=== PATIENT | male | born 2000 | race African-American/Black ===

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

== ENCOUNTER 2022-01-12 08:52 | Emergency (ER) | payer MEDICAID, OTHER ==
[~2022-01-12] VITALS: Ht 198.1 cm; Wt 109.0 kg
[2022-01-12 09:13] VITALS: BP 147/77
--- NOTE | 2022-01-12 09:14 | PHYS DOC ---
Past History Past Medical History: No Pertinent History Past Surgical History: No Surgical History Alcohol Use: None General Adult HPI: HPI: Patient is a 21-year-old male who presents to the emergency department for complaints of right anterior knee pain that started today. Patient reports that he was in football practice when a teammate clipped his right knee. He rates his pain 7 out of 10. Pain does not radiate. No treatment prior to arrival. Patient is able to bear weight and ambulate. He denies any decreased range of motion or decreased sensation in his leg. Review of Systems: Review of Systems: Musculoskeletal: See HPI Integument: See HPI Neurologic: See HPI Allergies: Allergies: Allergies Coded Allergies Type Severity Reaction Last Updated Verified No Known Drug Allergies 06/23/21 No Physical Exam: PE: Constitutional: Well developed, well nourished, no acute distress, non-toxic appearance. [] HENT: Normocephalic, atraumatic, bilateral external ears normal, oropharynx moist, no oral exudates, nose normal. [] Eyes: PERRL, EOMI, conjunctiva normal, no discharge. [] Neck: Normal range of motion, no stridor Cardiovascular: Normal peripheral perfusion Lungs & Thorax: Normal work of breathing, no tachypnea Abdomen: Soft and flat Skin: Warm, dry, no erythema, no rash. [] Back: No tenderness, normal range of motion Extremities: No tenderness, no cyanosis, no clubbing, ROM intact, no edema. [] Right knee: Pain with palpation of the anterior aspect of the right knee, no crepitus, no joint laxity, no obvious deformity, range of motion intact, neuro intact, no open wounds Neurologic: Alert and oriented X 3, normal motor function, normal sensory function, no focal deficits noted. [] Psychologic: Affect normal, judgement normal, mood normal. [] EKG: EKG: [] Radiology/Procedures: Radiology/Procedures: []PROCEDURE: KNEE RIGHT 3V EXAM: XR KNEE 3 VIEWS_RT 01/12/2022 9:27 AM CLINICAL INDICATION: Right knee injury during football practice. Lateral knee pain. COMPARISON: None TECHNIQUE: AP, oblique, and lateral views of the right knee FINDINGS: No acute fracture. Alignment is normal. Joint spaces are maintained. There is no joint effusion. Mild prepatellar soft tissue swelling.. IMPRESSION: 1. No acute osseous abnormality. 2. Mild prepatellar soft tissue swelling. Electronically signed by: Anita Mccall MD (01/12/2022 9:31 AM) [id number] DICTATED AND SIGNED BY: ANITA MCCALL MD DATE: 01/12/22 0931 CC: EMERGENCY,DEPARTMENT; ISAEL ANGEL APRN; PCP,NO ~ Heart Score: C/O Chest Pain: N/A Risk Factors: Risk Factors: DM, Current or recent (<one month) smoker, HTN, HLP, family history of CAD, obesity. Risk Scores: Score 0 - 3: 2.5% MACE over next 6 weeks - Discharge Home Score 4 - 6: 20.3% MACE over next 6 weeks - Admit for Clinical Observation Score 7 - 10: 72.7% MACE over next 6 weeks - Early Invasive Strategies Course & Med Decision Making: Course & Med Decision Making Pertinent Labs and Imaging studies reviewed. (See chart for details) [] Patient presents to the emergency department for right knee pain after getting in his right knee during football practice. X-ray was performed in the emergency department. X-ray shows no acute findings. Patient is knee placed in Morales wrap. Patient educated on RICE protocol. Patient advised to take Tylenol ibuprofen for pain. He is neurovascularly intact and able to bear weight and ambulate with steady gait. I discussed with patient all findings and diagnostic testing as well as the need to follow-up with PCP for further evaluation and treatment or return to the ER if any new or worsening symptoms. Strict return precautions were also discussed at length. Patient voiced understanding and agreement with the plan. Patient is hemodynamically stable at the time of disposition. Dragon Disclaimer: Dragrosa maria Disclaimer: This electronic medical record was generated, in whole or in part, using a voice recognition dictation system. Departure Departure: Impression: Primary Impression: Knee contusion Qualified Codes: S80.01XA - Contusion of right knee, initial encounter Disposition: HOME / SELF CARE / HOMELESS Condition: GOOD Referrals: PCP,ALEN (PCP) DANDY JADE Jr. DO Patient Instructions: RICE - Routine Care for Injuries Additional Instructions: You are seen in the emergency department today for knee pain. An x-ray was performed that showed no acute fracture. Your symptoms will likely improve over time. Your symptoms may be improved by something called the rice protocol. This is rest, ice, compression, elevation. Please follow-up when doing intense exercises that may make the pain worse. Sometimes gentle stretching can provide relief, but be careful to injury. It is important to perform gentle range of motion exercises to prevent stiff joints and chronic pain. Use ice packs over the affected areas to help decrease your pain. For the first 24 hours you can apply ice 20 minutes on 20 minutes off for 4 times per day. Sometimes compression such as the use of an Morales wrap can help with the swelling. You may also elevate the affected area to help with the swelling. Take Tylenol and ibuprofen for pain at home. Follow-up with your primary care provider within a week. If you continue to have pain you may need to follow-up with an orthopedic doctor as well as attached onto the discharge paperwork. Return to the emergency department Drewes, worsening of your pain, inability to bear weight or walk, decreased range of motion or decreased sensation in your extremity. ISAEL ANGEL APRN Jan 12, 2022 09:14
--- NOTE | 2022-01-12 09:34 | RAD ---
EXAM: XR KNEE 3 VIEWS_RT 01/12/2022 9:27 AM CLINICAL INDICATION: Right knee injury during football practice. Lateral knee pain. COMPARISON: None TECHNIQUE: AP, oblique, and lateral views of the right knee FINDINGS: No acute fracture. Alignment is normal. Joint spaces are maintained. There is no joint eff usion. Mild prepatellar soft tissue swelling.. IMPRESSION: 1. No acute osseous abnormality. 2. Mild prepatellar soft tissue swelling. Electronically signed by: Anita Mccall MD (01/12/2022 9:31 AM) [id number]
== END 2022-01-12 09:45 | disposition home or self-care (01) ==
LOC: ER 08:52
DX: S80.01XA Contusion of right knee, initial encounter (principal); W03.XXXA Other fall on same level due to collision with another person, initial encounter; Y93.61 Activity, american tackle football; Y92.89 Other specified places as the place of occurrence of the external cause; Y99.8 Other external cause status
CPT/HCPCS: 73562; 99283